=== PATIENT | male | born 2000 | race Caucasian/White ===

== ENCOUNTER 2022-12-07 21:28 | Emergency (ER) | payer OTHER ==
[2022-12-07 21:39] VITALS: BP 128/78; PULSE 97; RESP 16; TEMP 99; BMI 28.0
[2022-12-07] MEDS ORDERED: DIPHTH,PERTUSS(ACELL),TET 0.5 ML DISP.SYRIN IM ONE ×2 (22:07→22:08)
== END 2022-12-07 22:12 | disposition home or self-care (01) ==
LOC: FER 21:28
PROC: 3E0234Z Introduction of Serum, Toxoid and Vaccine into Muscle, Percutaneous Approach (ICD-10-PCS; principal; 2022-12-07)
DX: S01.01XA Laceration without foreign body of scalp, initial encounter (principal); W22.8XXA Striking against or struck by other objects, initial encounter; Y04.2XXA Assault by strike against or bumped into by another person, initial encounter; Y93.67 Activity, basketball
CPT/HCPCS: 90471; 90715; 99284-25

== ENCOUNTER 2022-12-15 15:25 | Emergency (ER) | payer OTHER ==
[2022-12-15 15:34] VITALS: BP 127/75; PULSE 88; RESP 16; TEMP 99.2; BMI 28.0
== END 2022-12-15 15:56 | disposition home or self-care (01) ==
LOC: FER 15:25
DX: Z48.02 Encounter for removal of sutures (principal)
CPT/HCPCS: 99281-25

== ENCOUNTER 2023-04-27 12:52 | Emergency (ER) | payer OTHER ==
[2023-04-27 12:58] VITALS: BP 141/64; PULSE 75; RESP 20; TEMP 98.2; BMI 24.6
== END 2023-04-27 15:25 | disposition home or self-care (01) ==
LOC: JERFT 12:52
PROC: 0H98XZZ Drainage of Buttock Skin, External Approach (ICD-10-PCS; principal; 2023-04-27)
DX: M79.18 Myalgia, other site (principal); L05.01 Pilonidal cyst with abscess
CPT/HCPCS: 76705-TC; 99284-25